=== PATIENT | male | born 1945 | race Caucasian/White ===

== ENCOUNTER 2019-12-31 16:12 | Emergency (ER) | payer OTHER ==
[~2019-12-31] VITALS: Ht 182.9 cm; Wt 63.6 kg
[2019-12-31 16:27] VITALS: Ht 182.9 cm; Wt 63.6 kg
[2019-12-31 17:03] VITALS: BP 147/102
[2019-12-31 17:07] LABS: BILIRUBIN NEGATIVE (NEGATIVE); KETONE NEGATIVE (NEGATIVE); NITRITE NEGATIVE (NEGATIVE); UROBILINOGEN NORMAL mg/dL (< 2)
[2019-12-31 17:08] LABS: BASOPHILS 0.2 % (0-2); EOSINOPHILS 0.2 % (0-7); HEMATOCRIT 38.4 % (42.0-54.0); HEMOGLOBIN 12.7 g/dL (13.5-17.5); IMMATURE GRANULOCYTES 0.2 % (0-5); LYMPHOCYTES 12.8 % (15-50); MCH 31.6 pg (26.0-34.0); MCHC 33.1 g/dL (31.0-37.0); MCV 95.5 fL (80.0-100.0); MEAN PLATELET VOLUME 9.3 fL (7.4-10.4); MONOCYTES 4.6 % (2-11); PLATELET COUNT 153 10x3/uL (130-400); RBC 4.02 10x6/uL (4.20-6.10); RDW 13.1 % (11.5-14.5); WBC 5.3 10x3/uL (4.8-10.8)
[2019-12-31 17:11] LABS: UDS - AMPHET NEGATIVE QUAL (NEGATIVE); UDS - BARB NEGATIVE QUAL (NEGATIVE); UDS - BENZO NEGATIVE QUAL (NEGATIVE); UDS - COCAINE NEGATIVE QUAL (NEGATIVE); UDS - OPIATE NEGATIVE QUAL (NEGATIVE); UDS - PCP NEGATIVE QUAL (NEGATIVE); UDS - THC NEGATIVE QUAL (NEGATIVE)
[2019-12-31 17:19] LABS: ANION GAP 10.6 mmol/L (8-16); CALCIUM 9.1 mg/dL (8.5-10.1); CARBON DIOXIDE 28.7 mmol/L (21.0-32.0); CREATININE - SERUM 1.3 mg/dL (0.6-1.3); POTASSIUM - SERUM 4.3 mmol/L (3.5-5.1)
[2019-12-31 17:25] LABS: ALBUMIN 4.3 g/dL (3.4-5.0); BILIRUBIN - TOTAL 1.62 mg/dL (0.2-1.3); PROTEIN - SERUM 7.6 g/dL (6.4-8.2)
== END 2020-01-02 10:55 | disposition home or self-care (01) ==
LOC: D.ER 16:12
PROVIDERS: Family Medicine
DX: R41.0 Disorientation, unspecified (principal); E86.0 Dehydration; I25.2 Old myocardial infarction

== ENCOUNTER 2020-09-06 16:33 | Emergency (ER) | payer OTHER ==
[~2020-09-06] VITALS: Ht 185.4 cm; Wt 61.4 kg
[2020-09-06 16:39] VITALS: Ht 185.4 cm; Wt 61.4 kg
[2020-09-06 17:29] LABS: BASOPHILS 0.5 % (0-2); EOSINOPHILS 1.1 % (0-7); HEMATOCRIT 37.5 % (42.0-54.0); HEMOGLOBIN 12.6 g/dL (13.5-17.5); LYMPHOCYTES 22.1 % (15-50); MCH 31.2 pg (26.0-34.0); MCHC 33.7 g/dL (31.0-37.0); MCV 92.6 fL (80.0-100.0); MEAN PLATELET VOLUME 7.4 fL (7.4-10.4); MONOCYTES 7.3 % (2-11); PLATELET COUNT 154 10x3/uL (130-400); RBC 4.05 10x6/uL (4.20-6.10); RDW 13.5 % (11.5-14.5); WBC 4.6 10x3/uL (4.8-10.8)
[2020-09-06 17:42] LABS: ANION GAP 13.1 mmol/L (8-16); CALCIUM 9.1 mg/dL (8.5-10.1); CARBON DIOXIDE 27.3 mmol/L (21.0-32.0); CREATININE - SERUM 1.3 mg/dL (0.6-1.3); POTASSIUM - SERUM 3.4 mmol/L (3.5-5.1)
[2020-09-06 17:48] LABS: ALBUMIN 4.1 g/dL (3.4-5.0); BILIRUBIN - TOTAL 1.53 mg/dL (0.2-1.3); PROTEIN - SERUM 7.3 g/dL (6.4-8.2)
[2020-09-06 19:05] LABS: BILIRUBIN NEGATIVE (NEGATIVE); KETONE NEGATIVE mg/dL (< 1+); NITRITE NEGATIVE (NEGATIVE); SQUAMOUS EPITHELIAL <1 HPF (0-4); UROBILINOGEN 2 mg/dL (< 2); WHITE CELLS - URINE 1 HPF (0-1)
[2020-09-07 00:35] VITALS: BP 112/54
== END 2020-09-07 00:35 ==
LOC: D.ER 16:33
PROVIDERS: Family Medicine
DX: R53.1 Weakness (principal); D64.9 Anemia, unspecified; E87.6 Hypokalemia; N28.89 Other specified disorders of kidney and ureter; R63.4 Abnormal weight loss; I25.2 Old myocardial infarction